=== PATIENT | male | born 1985 | race Caucasian/White ===

== ENCOUNTER 2017-01-09 21:05 | Emergency (ER) ==
--- NOTE | 2017-01-09 21:54 | PROVIDER DOCUMENTATION ---
Addendum entered and electronically signed by Antoni Morrison MD 01/10/17 01:17: Departure - Departure Time of Disposition Order: 01:15 DIAGNOSIS: Acute epididymitis Disposition: HOME 01 Certified Medical Emergency: Emergent Condition: Good Additional Instructions: fOLLOW UP [facility] (UROLOGY) Prescriptions: Ciprofloxacin HCl [Cipro] 500 mg PO BID #20 tablet Oxycodone HCl/Acetaminophen [Percocet 10-325 mg Tablet] 1 each PO Q4-8H PRN PRN #20 tablet PRN Reason: Pain Referrals: None,PCP [Primary Care Provider] - Instructions: Epididymitis Original Note: HPI-Male Problem - General Source: patient - History of Present Illness-Male Location of Complaint: reports: scrotal ( R teste) Radiation: reports: none Quality of Pain: reports: aching, pressure Severity in ED: reports: severe Onset/Duration: reports: 4 days ago Timing: reports: still present, getting worse Urinary Symptoms: denies: anuria, dysuria, dribbling, frequency, hematuria, hesitancy, incontinent, nocturia, polyuria, retention, urgency, low back pain Associated Symptoms: reports: pain/swelling in testicle. denies: blood in ejaculate, problems with erection, unable to retract foreskin, inguinal mass, penile discharge, penile pain/swelling, unable to replace foreskin Associated Symptoms: reports: trouble walking. denies: anxiety, back/neck pain , chest pain, constipation, cough, diaphoresis, diarrhea, dizziness, fatigue, fever/chills, joint pain, loss of appetite, muscle aches, nausea, rash, syncope , vomiting, weakness <Antonio Nolasco - Last Filed: 01/10/17 01:01> <Antoni Morrison - Last Filed: 01/10/17 01:10> - General Chief Complaint: Male Stated Complaint: GENERAL, MALE Time Seen by Provider: 01/09/17 21:45 Allergies/Adverse Reactions: Patient Allergies Allergy/AdvReac Type Severity Reaction Status Date / Time tramadol Allergy HIVES Verified 01/09/17 21:14 Home Medications: Home Medication List Medication Instructions Recorded Confirmed Last Taken Type Oxycodone HCl/Acetaminophen 1 tab PO PRN PRN 01/09/17 01/09/17 Unknown History [Oxycodon-Acetaminophen 7.5-325] Sulfamethoxazole/Trimethoprim 800 each PO DAILY 01/09/17 01/09/17 Unknown History [Sulfamethoxazole-Tmp Ds Tablet] Ciprofloxacin HCl [Cipro] 500 mg PO BID #20 tablet 01/10/17 Unknown Rx Oxycodone HCl/Acetaminophen 1 each PO Q4-8H PRN PRN #20 tablet 01/10/17 Unknown Rx [Percocet 10-325 mg Tablet] - History of Present Illness-Male Nature of Presenting Problem: Pt is a 31 yom who presents to ER with CC of R testicular swelling/pain x3 days. Pt reports that he was diagnosed x4 days ago with an infection of his R elbow and was given antibiotics (). Pt reports that he was seen at a [place] ER and got back to [place] today (time unspecified). Pt reports that 3 days ago, his R teste began to swell and has become severely tender, worsened by every small vibration. Pt denies any discharge/dysuria/hematuria/or any other complications. (Antonio Nolasco) Review of Systems - Adult - REVIEW OF SYSTEMS - ADULT Constitutional: denies: chills, fever, fatique, night sweats, weight gain, weight loss Eyes: reports: no symptoms reported Ears, Nose, Mouth & Throat: reports: no symptoms reported Cardiovascular: denies: chest pain, edema, irregular heart rate, palpitations, poor circulation, syncope Respiratory: denies: chronic cough, cough, dyspnea on exertion, excessive sputum production, hemoptysis, shortness of breath, wheezing Gastrointestinal: reports: no symptoms reported Genitourinary: reports: other (R testicular swelling/tender). denies: dysuria, discharge, frequency, flank pain, frequent UTI's, hematuria, hesitency, incontinence, urinary retention, urgency Musculoskeletal: reports: no symptoms reported Integumentary: reports: no symptoms reported Neurological: reports: no symptoms reported Psychiatric: reports: no symptoms reported Endocrine: reports: no symptoms reported Hematologic/Lymphatic: reports: no symptoms reported Allergic/Immunologic: reports: no symptoms reported All Other Systems: Reviewed and Negative <Antonio Nolasco - Last Filed: 01/10/17 01:01> Past History - Adult - PAST MEDICAL HISTORY-ADULT Review of Records: reports: Nursing Assessment Review, Medications Reviewed - IMMUNIZATION STATUS Childhood Immunizations: See Nurse Assessment Flu Vaccine: See Nurse Assessment <Antonio Nolasco - Last Filed: 01/10/17 01:01> Physical Exam-General - PHYSICAL EXAM-ADULT Initial Vital Signs Reviewed: Yes - CONSTITUTIONAL General Appearance: appears well, alert, moderate distress. negative: lethargic , slow to respond, obtunded, combative - NECK Neck: non-tender, full range of motion, supple. negative: C-spine tenderness, lymphadenopathy - RESPIRATORY Respiratory: chest non-tender, lungs clear, normal breath sounds. negative: respiratory distress, decreased breath sounds, accessory muscle use, wheezing - CARDIOVASCULAR Cardiovascular: normal peripheral pulses, regular rate, rhythm. negative: bradycardia, tachycardia, diastolic murmur, systolic murmur, extra beats - GASTROINTESTINAL (ABDOMEN) Abdominal Exam: normal bowel sounds, non tender, soft. negative: abnormal bowel sounds, distended, tenderness - LYMPHATIC Lymphatic: no adenopathy. negative: axilla node tender, cervical node tenderness, inguinal node tender - MUSCULOSKELETAL Back Exam: no CVA tenderness, no vertebral tenderness. negative: CVA tenderness , decreased range of motion, ecchymosis, muscle spasm, swelling, vertebral tenderness - SKIN Integumentary: erythema, swelling, tenderness. negative: abrasion(s), diaphoresis, laceration(s), warm - NEUROLOGIC Neurologic: grossly normal, no motor/sensory deficits - PSYCHIATRIC Psych/Mental Status: normal thought content, normal thought process, oriented x 3, disheveled. negative: normal mood/affect <Antonio Nolasco - Last Filed: 01/10/17 01:01> Progress - REASSESSMENT Reassessment #1 Time Reassessed: 01:01 Status: improving (Pt reports he is feeling a little better; Dr. Morrison discussed consult with Urologist and POC to discharge pt and follow up with Urologist on Thursday. Pt verbally acknowledged and agreed.) <Antonio Nolasco - Last Filed: 01/10/17 01:01> <Antoni Morrison - Last Filed: 01/10/17 01:10> - PLAN OF CARE/RESULTS Progress/Plan/Lab Results: Vital Signs - 24 hr 01/09/17 21:12 Temperature 97.3 F L Pulse Rate 81 Respiratory 16 Rate Blood Pressure 139/70 O2 Sat by Pulse 100 Oximetry Orders Category Date Time Status CBC WITH ELECTRONIC DIFF [HEME] Stat Lab 01/09/17 22:51 Completed CHLAMYDIA AND GC BY PCR URINE [WAVERLY] Stat Lab 01/09/17 22:51 Received COMPREHENSIVE METABOLIC PANEL [CHEM] Stat Lab 01/09/17 22:51 Completed UA NIMS W/REFLEX CULT [URINALYSIS] Stat Lab 01/09/17 22:51 Completed URINE CULTURE [RM] Routine Lab 01/09/17 23:59 Received CefTRIAXONE 1 GM/NS [Rocephin 1 gm/Ns] 50 ml Med 01/09/17 23:23 Discontinued IV NOW Ciprofloxacin [Cipro] Med 01/09/17 23:25 Discontinued 500 mg PO NOW ONE Laboratory Tests 01/09/17 01/09/17 01/09/17 22:51 22:51 22:51 WBC 9.63 RBC 4.59 L Hgb 13.8 L Hct 40.0 L MCV 87.1 MCH 30.1 MCHC 34.5 RDW Std Deviation 13.3 Plt Count 290 MPV 10.3 Immature Gran % (Auto) 0.2 Neut % (Auto) 52.4 Lymph % (Auto) 32.7 [place] % (Auto) 10.6 H Eos % (Auto) 3.6 Baso % (Auto) 0.5 Immature Gran # (Auto) 0.02 Neut # (Auto) 5.04 Lymph # (Auto) 3.15 [place] # (Auto) 1.02 H Eos # (Auto) 0.35 Baso # (Auto) 0.05 Sodium 138 Potassium 4.0 Chloride 101 Carbon Dioxide 26 Anion Gap 11 BUN 9 Creatinine 0.8 Estimated GFR/1.73 m2 > 60 BUN/Creatinine Ratio 11 Glucose 88 Calculated Osmolality 274 Calcium 9.2 Total Bilirubin 0.20 AST 15 ALT 19 Alkaline Phosphatase 74 Total Protein 7.1 Albumin 3.9 Globulin 3.2 Albumin/Globulin Ratio 1.2 Urine Source CLEAN CATCH Urine Color YELLOW Urine Turbidity CLEAR Urine pH 7.0 Ur Specific [place] 1.022 Urine Protein TRACE A Ur Glucose (Stick) NEGATIVE Ur Ketones (Stick) NEGATIVE Urine Blood NEGATIVE Urine Nitrite NEGATIVE Urine Bilirubin NEGATIVE Urobilinogen Dipstick 2 A Urine Leukocytes SMALL A Urine WBC (Auto) 10-20 A Urine RBC (Auto) <10 U Epithel Cells (Auto) <10 Urine Bacteria (Auto) NEGATIVE (Antonio Nolasco) Departure <Antonio Nolasco - Last Filed: 01/10/17 01:01> - Departure Time of Disposition Order: 01:05 Certified Medical Emergency: Emergent <Antoni Morrison - Last Filed: 01/10/17 01:10> - Departure DIAGNOSIS: Acute epididymitis Disposition: HOME 01 Condition: Good Prescriptions: Ciprofloxacin HCl [Cipro] 500 mg PO BID #20 tablet Oxycodone HCl/Acetaminophen [Percocet 10-325 mg Tablet] 1 each PO Q4-8H PRN PRN #20 tablet PRN Reason: Pain Attestation - Scribe Verification/Attestation Scribe:: Antonio Nolasco Acting as Scribe for:: Antoni Morrison Scribe documention review:: This chart was documented by a scribe and accurately reflects the service the provider performed and the decisions made by the provider. <Antonio Nolasco - Last Filed: 01/10/17 01:01> Physician Attestation
[2017-01-09 23:07] LABS: MANUAL DIFF NEEDED? NO; URINE MICRO REVIEW NEEDED? NO; URINE SOURCE CLEAN CATCH
[2017-01-09 23:11] LABS: BILIRUBIN URINE NEGATIVE (NEGATIVE); BLOOD URINE NEGATIVE (NEGATIVE); COLOR YELLOW; GLUCOSE URINE NEGATIVE (NEGATIVE); LEUKOCYTES URINE SMALL (NEGATIVE); NITRITE URINE NEGATIVE (NEGATIVE); PROTEIN URINE TRACE mg/dL (NEGATIVE); SP GRAVITY URINE 1.022; TURBIDITY URINE CLEAR (CLEAR); UR EPITHELIAL CELLS <10 /HPF (<10); URINE BACTERIA NEGATIVE /HPF; URINE CULTURE NEEDED? YES; URINE RBC <10 /HPF (<10); UROBILINOGEN URINE 2 mg/dL (NORMAL)
[2017-01-09 23:12] LABS: BASO% 0.5 % (0.0-0.8); EOS# 0.35 X1000 (0.0-0.7); EOS% 3.6 % (0.0-10.0); HEMOGLOBIN 13.8 g/dL (14.0-18.0); IMM GRAN# 0.02 X1000 (0.0-0.04); IMM GRAN% 0.2 % (0.0-0.5); LYMPH# 3.15 X1000 (1.2-3.4); LYMPH% 32.7 % (20.5-51.1); MCH 30.1 PG (27-31); MCHC 34.5 g/dL (33-37); MCV 87.1 FL (81-99); MONO# 1.02 X1000 (0.11-0.59); MONO% 10.6 % (1.7-9.3); MPV 10.3 FL (7.4-10.4); NEUT% 52.4 % (42.2-75.2); PLT 290 X1000 (130-400); RBC 4.59 XMIL (4.7-6.1)
[2017-01-09] MEDS ORDERED: ROCEPHIN 1 GM/NS 50 ML IV ONE (23:23)
[2017-01-09] MEDS ORDERED: CIPRO PO ONE (23:25)
[2017-01-09 23:28] LABS: AGAP 11; ALBUMIN 3.9 g/dL (3.5-5.0); ALKALINE PHOSPHATASE 74 U/L (32-122); BUN 9 mg/dL (8-22); CALCIUM 9.2 mg/dL (8.8-10.2); CHLORIDE 101 mmol/L (98-107); COSMO 274; GOT 15 U/L (10-34); GPT 19 U/L (10-44); SODIUM 138 mmol/L (136-145); TCO2 26 mmol/L (25-35); TOTAL PROTEIN 7.1 g/dL (6.3-8.3)
[2017-01-10 01:47] VITALS: BP 122/69
== END 2017-01-10 01:47 | disposition home or self-care (01) ==
LOC: ED 21:05
DX: N45.1 Epididymitis (principal); N50.811 Right testicular pain; N50.89 Other specified disorders of the male genital organs
CPT/HCPCS: 80053; 81001; 85025; 87088; 87491; 87591; J0696